=== PATIENT | female | born 1985 | race Caucasian/White ===

== ENCOUNTER 2023-07-08 16:19 | Emergency (ER) | payer OTHER ==
[2023-07-08] MEDS ORDERED: Albuterol/Ipratropium 3.0-0.5 MG/3 ML Neb Soln NEB ONE (18:23)
== END 2023-07-08 20:06 | disposition home or self-care (01) ==
LOC: JP.ED 16:19
DX: J40 Bronchitis, not specified as acute or chronic (principal); J45.909 Unspecified asthma, uncomplicated; Z79.899 Other long term (current) drug therapy; Z88.2 Allergy status to sulfonamides; Z86.16 Personal history of COVID-19
CPT/HCPCS: 94640; 99284; J7620